=== PATIENT | female | born 1980 | race American Indian/Alaskan Native ===

== ENCOUNTER 2017-03-04 14:04 | Emergency (ER) | payer OTHER ==
[2017-03-04 14:11] VITALS: BP 109/66; PULSE 63; RESP 18; TEMP 98.8; O2SAT 100; BMI 34.4
--- NOTE | 2017-03-04 14:40 | ED PDOC ---
Arrival/HPI - General Chief Complaint: Lower Extremity Problem/Injury Time Seen by Provider: 03/04/17 14:17 Historian: Patient - History of Present Illness Narrative History of Present Illness (Text): 03/04/17 14:42 A 36 year old female presents to the emergency department complaining of bilateral ankle pain and swelling. She notes swelling developed three days ago and pain for the past two days. Patient reports she went to PMD this morning, who sent her to emergency department. She states she has been walking 5K every evening for a week. Denies any other complaints at this time. PMD: Dr. Thao Time/Duration: < week Symptom Onset: Sudden Symptom Course: Unchanged Context: Walking Past Medical History - Provider Review Nursing Documentation Reviewed: Yes - Infectious Disease Hx of Infectious Diseases: None - Cardiac Hx Cardiac Disorders: No - Pulmonary Hx Respiratory Disorders: No - Neurological Hx Neurological Disorder: No - HEENT Hx HEENT Disorder: No - Renal Hx Renal Disorder: No - Endocrine/Metabolic Hx Diabetes Mellitus Type 2: Yes - Hematological/Oncological Other/Comment: pt c/o hives/itch started 1 yr before then went away while pregmant, gave 06/2015 and now allergy has started to come back. cause is unknown tests came back negative, possible food allergy to gluten, was told to stay away from gluten by physician, pt to have more tests - Integumentary Other/Comment: Hives and itching - Musculoskeletal/Rheumatological Hx Falls: No - Gastrointestinal Hx Gastrointestinal Disorders: No - Genitourinary/Gynecological Hx Genitourinary Disorders: No - Psychiatric Hx Psychophysiologic Disorder: No Hx Substance Use: No - Surgical History Hx Section: Yes - Anesthesia Hx Anesthesia: Yes Hx Anesthesia Reactions: No Hx Malignant Hyperthermia: No Family/Social History - Physician Review Nursing Documentation Reviewed: Yes Family/Social History: No Known Family HX Smoking Status: Never Smoked Hx Alcohol Use: No Hx Substance Use: No Allergies/Home Meds Allergies/Adverse Reactions: Allergies gluten Allergy (Verified 03/04/17 14:11) RASH Home Medications: Home Meds Medication Instructions Recorded Confirmed hydrOXYzine HCl [Atarax] 10 mg PO DAILY 06/12/16 03/04/17 Famotidine [Pepcid] 20 mg PO DAILY 03/04/17 03/04/17 Review of Systems - Physician Review All systems were reviewed & negative as marked: Yes - Review of Systems Respiratory: absent: SOB Musculoskeletal: Other (bilateral ankle pain and swelling) Neurological: absent: Headache Physical Exam Vital Signs Reviewed: Yes Vital Signs Temp Pulse Resp BP Pulse Ox 03/04/17 14:08 98.8 F 63 18 109/66 100 Temperature: Afebrile Blood Pressure: Normal Pulse: Regular Respiratory Rate: Normal Appearance: Positive for: Well-Appearing, Non-Toxic, Comfortable Pain Distress: None Mental Status: Positive for: Alert and Oriented X 3 - Systems Exam Head: Present: Atraumatic, Normocephalic Pupils: Present: PERRL Extroacular Muscles: Present: EOMI Conjunctiva: Present: Normal Mouth: Present: Moist Mucous Membranes Neck: Present: Normal Range of Motion Respiratory/Chest: Present: Clear to Auscultation, Good Air Exchange. No: Respiratory Distress, Accessory Muscle Use Cardiovascular: Present: Regular Rate and Rhythm, Normal S1, S2. No: Murmurs Abdomen: Present: Normal Bowel Sounds. No: Tenderness, Distention, Peritoneal Signs Back: Present: Normal Inspection Upper Extremity: Present: Normal Inspection. No: Cyanosis, Edema Lower Extremity: Present: NORMAL PULSES, Swelling, Capillary Refill < 2 s, Other (achilles tendon intact) Neurological: Present: GCS=15, CN II-XII Intact, Speech Normal Skin: Present: Warm, Dry, Normal Color. No: Rashes Psychiatric: Present: Alert, Oriented x 3, Normal Insight, Normal Concentration Medical Decision Making ED Course and Treatment: 03/04/17 14:37 Impression: A 36 year old female with bilateral ankle pain and swelling. Plan: -- US lower extremity -- Radiology right ankle -- Radiology right foot -- Motrin -- Reassess and disposition Prior Visits: Notes and results from previous visits were reviewed. Patient last reported to the emergency department on 06/12/16 for evaluation of right sided chest pain. Patient admitted to [facility] under Dr. Gutierrez's service. Patient was discharged on 06/14/16. Progress Notes: - RAD Interpretation Radiology Orders: 03/04/17 14:26 ANKLE RIGHT 3 VIEWS ROUTINE [RAD] Stat FOOT RIGHT 3 VIEWS ROUTINE [RAD] Stat 03/04/17 14:34 DUPLEX LOWER EXTRM VEIN RIGHT [US] Stat - Medication Orders Current Medication Orders: Discontinued Medications Ibuprofen (Motrin Tab) 600 mg PO STAT STA Stop: 03/04/17 14:28 Last Admin: 03/04/17 15:22 Dose: 600 mg - Moriahibe Statement The provider has reviewed the documentation as recorded by the Radha Molina Provider Radha Attestation: All medical record entries made by the Moriahibthiago were at my direction and personally dictated by me. I have reviewed the chart and agree that the record accurately reflects my personal performance of the history, physical exam, medical decision making, and the department course for this patient. I have also personally directed, reviewed, and agree with the discharge instructions and disposition. Disposition/Present on Arrival - Present on Arrival Any Indicators Present on Arrival: No History of DVT/PE: No History of Uncontrolled Diabetes: No Urinary Catheter: No History of Decub. Ulcer: No History Surgical Site Infection Following: None - Disposition Have Diagnosis and Disposition been Completed?: Yes Diagnosis: Ankle sprain Disposition: HOME/ ROUTINE Disposition Time: 15:15 Condition: GOOD Discharge Instructions (ExitCare): Ankle Sprain (ED) Additional Instructions: Thank you for letting us take care of you today. Your provider was Dr. Gallgeos. You were treated for ankle sprain. The emergency medical care you received today was directed at your acute symptoms. If you were prescribed any medication, please fill it and take as directed. It may take several days for your symptoms to resolve. Return to the Emergency Department if your symptoms worsen, do not improve, or if you have any other problems. Please contact your doctor or call one of the physicians/clinics you have been referred to that are listed on the Patient Visit Information form that is included in your discharge packet. Bring any paperwork you were given at discharge with you along with any medications you are taking to your follow up visit. Our treatment cannot replace ongoing medical care by a primary care provider (PCP) outside of the emergency department. Thank you for allowing the [facility] team to be part of your care today. Follow up with your doctor in 3-4 days for re-evaluation and further management. Prescriptions: Ibuprofen [Motrin] 600 mg PO Q6 PRN #20 tab PRN Reason: Pain, Moderate (4-7) Referrals: Chris Thao MD [Primary Care Provider] - Follow up with primary Forms: WORK NOTE
--- NOTE | 2017-03-04 15:20 | RAD ---
PROCEDURE: Right Ankle Radiographs. HISTORY: r/o fx COMPARISON: Comparison made with concurrent radiographs of the right foot. FINDINGS: BONES: No evidence of acute displaced fracture nor dislocation. The osseous structures appear intact. Talar dome intact. Tiny posterior calcaneal enthesophyte. JOINTS: Ankle mortise maintained. Mild spurring seen along the inferior tip of the medial malleolus as well as anterior distal tibia. . SOFT TISSUES: Moderate bilateral soft tissue swelling. OTHER FINDINGS: None. IMPRESSION: No evidence of acute displaced fracture nor dislocation. Mild DJD as described. Bilateral soft tissue swelling. If symptoms persist or occult fracture suspected clinically recommend repeat radiographs in 5-10 days as most fractures should become radiographically evident in.
--- NOTE | 2017-03-04 15:22 | RAD ---
PROCEDURE: Right Foot Radiographs. HISTORY: r/o fx COMPARISON: Comparison made with concurrent radiographs of the right ankle FINDINGS: BONES: Normal. No fracture. JOINTS: Minor hallux valgus deformity. . There is minor DJD at the level of the tibiotalar articulation. SOFT TISSUES: There is mild diffuse soft tissue swelling most pronounced over at the level of the medial and lateral malleoli. OTHER FINDINGS: None. IMPRESSION: No acute fractures. Mild diffuse soft tissue swelling. If symptoms persist or occult fracture suspected clinically recommend followup radiographs in 5-10 days as most fractures should become radiographically evident in this timeframe.
--- NOTE | 2017-03-05 08:59 | US ---
PROCEDURE: Right lower extremity venous US HISTORY: Leg pain and swelling. Evaluate for DVT. PHYSICIAN(S): Edson Morgan M.D. TECHNIQUE: Duplex sonography and color-flow Doppler with graded compression were used to evaluate the deep venous system of the right lower extremity. FINDINGS: The visualized deep venous system of the right lower extremity is sonographically normal and compressible. Normal waveforms and augmentation are seen. There is no sonographic evidence for deep venous thrombosis in the visualized segments of the right lower extremity. IMPRESSION: 1. No sonographic evidence for deep venous thrombosis in the visualized segments of the right lower extremity.
== END 2017-03-04 15:50 | disposition home or self-care (01) ==
LOC: ED 14:04
DX: S93.401A Sprain of unspecified ligament of right ankle, initial encounter (principal); S93.402A Sprain of unspecified ligament of left ankle, initial encounter; X50.0XXA Overexertion from strenuous movement or load, initial encounter; Y93.01 Activity, walking, marching and hiking; Y92.89 Other specified places as the place of occurrence of the external cause